=== PATIENT | male | born 1990 | race Caucasian/White ===

== ENCOUNTER 2022-01-16 13:50 | Emergency (ER) | payer BC, SELFPAY ==
[2022-01-16 14:02] VITALS: BP 159/109; PULSE 118; RESP 22; TEMP 36.1; O2SAT 96; BMI 37.5
--- NOTE | 2022-01-16 14:05 | ED.WOUNDLAC ---
HPI - Wound/Laceration General Chief Complaint: Laceration/Wound Stated Complaint: R index laceration Time Seen by Provider: 01/16/22 14:03 History of Present Illness HPI narrative: This 31-year-old male comes in with a laceration to his right index finger. This occurred this morning about 7 hours prior to arrival here. He was washing some dishes and miss handled the knife which cut into the thenar aspect of the right index finger in the middle segment of the finger. He placed some tape and bandage over this but states that when he removed the tape later the wound opened up again. He has normal range of motion of this finger. There is no other injury. He states that his tetanus is up-to-date. Related Data Allergies Allergy/AdvReac Type Severity Reaction Status Date / Time No Known Drug Allergies Allergy Verified 01/16/22 14:02 Review of Systems Status of ROS: Reports: 10 or more systems reviewed and unremarkable except as noted in History and below Narrative: Constitutional: No fevers, no weight gain or loss. Eyes: No discharge. No vision changes. HENT: No congestion, no sore throat, no ear pain. Cardiovascular: No chest pain, no palpitations. Respiratory: No shortness of breath, no wheezes, no cough. Gastrointestinal: No abdominal pain, no vomiting, no diarrhea. Genitourinary: No dysuria, no hematuria. Musculoskeletal: Normal range of motion. Skin: No rashes, no pruritis. Neurological: No dizziness, weakness, sensory change, speech change. Endo/Heme/Allergies: No bruising or bleeding. No polydipsia. Pysch: no suicidality, no anxiety, no insomnia. All other systems reviewed and are negative. Exam Narrative: Exam Narrative: Constitutional: Well-developed, well-nourished, no acute distress. HEENT: Normocephalic, atraumatic. Neck: Normal range of motion. Nontender. Supple. Heart: Intact distal pulses. Lungs: No chest discomfort. No wheezes, rhonchi, or rales. Abdomen: Nontender. Back: Normal range of motion. Extremities: Normal range of motion. 1.5 cm linear laceration in the middle portion of the right index finger. Skin: Intact. No rash. Warm. No erythema or pallor. Neurologic: No altered sensation. No weakness. Alert and oriented. Psychiatric: No suicidality. No anxiety or depression. No insomnia. Nursing notes and vitals signs are reviewed. Const: Vital Signs, click to edit/add: Vital Signs - 24 hr 01/16/22 14:02 Temperature 96.9 F L Pulse Rate [Right Pulse Oximeter] 118 H Respiratory Rate 22 Blood Pressure [Ri ght Upper Arm] 159/109 H Pulse Oximetry 96 Oxygen Delivery Me thod Room Air Course Vital Signs Vital signs: Initial Vital Signs Temperature 96.9 F L 01/16/22 14:02 Temperature Source Temporal Artery Scan 01/16/22 14:02 Pulse Rate 118 H 01/16/22 14:02 Respiratory Rate 22 01/16/22 14:02 Blood Pressure 159/109 H 01/16/22 14:02 Blood Pressure Mean 125 01/16/22 14:02 Blood Pressure Position Sitting 01/16/22 14:02 Pulse Oximetry 96 01/16/22 14:02 Oxygen Delivery Method 01/16/22 14:02 Vital Signs Temperature 96.9 F L 01/16/22 14:02 Pulse Rate 118 H 01/16/22 14:02 Respiratory Rate 01/16/22 14:02 Blood Pressure 159/109 H 01/16/22 14:02 Pulse Oximetry 96 01/16/22 14:02 Oxygen Delivery Method 01/16/22 14:02 Temperature 96.9 F L 01/16/22 14:02 Pulse Rate 118 H 01/16/22 14:02 Respiratory Rate 01/16/22 14:02 Blood Pressure 159/109 H 01/16/22 14:02 Pulse Oximetry 96 01/16/22 14:02 Oxygen Delivery Method 01/16/22 14:02 MDM - Wound/Laceration MDM Narrative Medical decision making narrative: This patient comes in with a laceration to the right index finger. The wound was cleansed and explored. I discussed repair options and the patient elected to have Dermabond applied. This was done with excellent results. He also received a Band-Aid and some Coban around that finger to prevent flexion of the nearby joint which may compromise wound repair. Instructions were given regarding wound care. Discharge Plan Discharge Clinical Impression: Laceration Patient Disposition: Home, Self-Care Condition: Stable Additional Instructions: Keep wound clean and dry. Follow up with MD as needed. Return if worsening. Stand Alone Forms: [facility] Info Instructions
== END 2022-01-16 14:42 | disposition home or self-care (01) ==
LOC: ED 14:37
PROVIDERS: Emergency Provider Emergency Medicine Emergency Medical Services
DX: S61.210A Laceration without foreign body of right index finger without damage to nail, initial encounter (principal); W26.0XXA Contact with knife, initial encounter; Y93.G1 Activity, food preparation and clean up; Y92.010 Kitchen of single-family (private) house as the place of occurrence of the external cause
CPT/HCPCS: 12001; 99282; 99283